=== PATIENT | female | born 1995 | race Hispanic/Latino ===

== ENCOUNTER 2020-05-29 11:07 | Inpatient (IN) | payer OTHER ==
[~2020-05-29] VITALS: Ht 152.4 cm; Wt 72.6 kg
--- NOTE | ~2020-05-29 | OR ---
[facility] [address] [place], [place] [address] Draft DATE OF OPERATION: 05/29/2020 SURGEON: Ascencion Cantrell DO PREOPERATIVE DIAGNOSES: 1. Term . 2. Breech presentation. 3. . 4. Type 2 diabetes, diet controlled. POSTOPERATIVE DIAGNOSES: 1. Term . 2. Breech presentation. 3. . 4. Type 2 diabetes, diet controlled. SPORTS ADMINISTRATOR: Zuly Lobato MD ANESTHESIA: Spinal. PROCEDURE PERFORMED: Primary low transverse delivery. ESTIMATED BLOOD LOSS: 500 mL. COMPLICATIONS: None. INDICATION: Ms. Deon Gonzales is a pleasant 25-year-old G1, P0 female, who presented to Labor and Delivery complaining of rupture of membranes. complicated by type 2 diabetes, well controlled with metformin and persistent breech presentation. The patient had failed external cephalic version with a previous . The patient denies contractions. She is also GBS positive. She was admitted to Labor and Delivery for primary low transverse delivery. Risks, benefits, and alternatives were discussed in detail with the patient. The patient understands and wished to proceed with the procedure. PATIENT NAME: NICOLLE TOMPKINS OPERATIVE REPORT DATE OF : [birth year] REPORT #: [id number] PHYSICIAN: ASCENCION CANTRELL DO PCP: ASCENCION CANTRELL DO REPORT IS CONFIDENTIAL AND NOT TO BE RELEASED WITHOUT AUTHORIZATION [facility] [address] [place], [place] [address] Draft TECHNIQUE: The patient was taken to the operating room where a time-out was performed to confirm correct patient and correct procedure. Spinal anesthesia was adequately established. The patient was prepped and draped in the supine position with a bump under the right hip. Ancef 2 g was given preoperatively per skip protocol and no heparin was indicated per previous score. A bump was placed on the right hip. ICPs were on and running. A Sams catheter was inserted. A Pfannenstiel skin incision was made after confirming spinal anesthetic was adequate. The incision was taken down through the fascia in midline and the fascia was nicked using the surgical scalpel. The fascial incision was extended bilaterally using curved Parker scissors. The fascia was grasped with Ady's, elevated, and the underlying rectus was divided with a blunt and sharp dissection. The rectus muscles were divided in the midline and peritoneum was grasped with hemostats elevated and entered sharply. Peritoneal incision was extended cephalad and caudad using blunt and sharp dissection. The lower uterine segment was identified and an Logan self retractor was placed. Hysterotomy was then performed using a surgical scalpel and clear fluids as noted. Hysterotomy was extended bilaterally using blunt dissection. buttocks were noted and elevated and abdomen by grasping the bilateral . That fetus was gently delivered with the assistance of fundal pressure up to the axilla. The anterior arm was swept medially and delivered. was rotated to 180 degrees and now the anterior arm was medially and easily delivered. The was then rotated to the occiput anterior position. The head was flexed by grasping the maxilla and delivered easily. The was vigorous and cried. No nuchal cord was identified. Thick meconium was noted. The cord was doubly clamped and cut and the handed to the awaiting pediatric team for further care. Cord blood was obtained for routine analysis. Placenta was then manually extracted intact with a centrally inserted 3-vessel cord. Bleeding was scant. Pitocin was given per protocol. The uterus was evaluated and lap sponge was used to remove any remaining products of conception and clot. Hysterotomy was then repaired using 0 Vicryl in a running locked manner. A second imbricating suture of 0 Vicryl was applied in a vertical manner with excellent imbrication. Small amount of oozing was noted just left of the midline and this was made hemostatic with a [id number]-of-daalt suture. The pelvis was irrigated and found to be hemostatic. Bilateral tubes and ovaries were identified and . The Logan self retractor was induced and the pelvic hemostatic. The peritoneum was then reapproximated using 2-0 Vicryl after ACell sheet was . The rectus was evaluated and small amount of oozing was noted just left of the midline. This was made homeostatic with multiple figure of eight sutures of 0 Chromic. After ensuring the rectus was hemostatic, ACell powder was applied and the rectus was ligated in the middle three times using interrupted 0 Vicryl stitch. Fascia was then reapproximated using 0 Vicryl in a running nonlocked manner. was reapproximated using 2-0 Vicryl in a running nonlocked manner. Skin was reapproximated using surgical wilder. Good hemostasis was appreciated. and the patient PATIENT NAME: NICOLLE TOMPKINS OPERATIVE REPORT DATE OF : [birth year] REPORT #: [id number] PHYSICIAN: ASCENCION CANTRELL DO PCP: ASCENCION CANTRELL DO REPORT IS CONFIDENTIAL AND NOT TO BE RELEASED WITHOUT AUTHORIZATION [facility] [address] [place] [address] Draft was taken to PACU in good and stable condition. Sponge, needle, instrument count were correct x2 at the end of the procedure. was present and participated in all portions of the procedure. Ascencion Cantrell DO JHECTOR/AMALIAL /[id number] Copies: ~ PATIENT NAME: NICOLLE TOMPKINS OPERATIVE REPORT DATE OF : [birth year] REPORT #: [id number] PHYSICIAN: ASCENCION CANTRELL DO PCP: ASCENCION CANTRELL DO REPORT IS CONFIDENTIAL AND NOT TO BE RELEASED WITHOUT AUTHORIZATION
[~2020-05-29 11:07] MED LIST: DOXYCYCLINE HY100 MG PO; NAPROXEN375 MG PO
[2020-05-29] MEDS ORDERED: PRENATAL VITAM1 EAC5 PO (13:54)
[2020-05-29] MEDS ORDERED: METFORMIN HCL500 MG PO (13:55)
--- NOTE | 2020-05-29 13:55 | NUR ---
05/29/20 1355 Tiff Marshall 4944- PT ARRIVES TO [facility] ROOM #103. PT REPORTS NO PAIN OR NAUSEA. RESP EVEN AND UNLABORED. OXYGEN SAT HIGH 90'S TO 100% ON RA. PT'S IV SITE INFUSING LR WITH 20 UNITS OF PITOCIN WELL. PT'S MOTHER AND BABY AT THE BEDSIDE.
--- NOTE | 2020-05-30 08:14 | PR ---
[facility] [address] [place], [place] [address] Signed PP Progress Notes Datetime Report Generated by AMADOR: 05/30/2020 08:14 SUBJECTIVE: [id number] Pain: Within Normal Limits Nausea/Vomiting: Denies Flatus: Yes Vital Signs: [id number] Vital Signs: Reviewed; Within Normal Limits Cardiovascular: Normal Respiratory: Normal Abdomen/Uterus: Abnormal Lochia: Normal Vulva/Perineum: Not Done Breasts: Not Done CVA Tenderness: Not Done Extremities: Normal Incision: Normal Progress: Normal Exam Comments: Abdomen with active BS. Fundus firm, NT @ U-1. H/H 10.1/29.6, WBC 6, plat 114k IMPRESSION/PLAN/PROCEDURES: [id number] Impression: Normal Progression Other Plans: Ambulate, shower Procedures: None Progress Notes: Doing well. Will increase ambulation. Sugars doing well thus far off medication. Signing Physician: Zuly Lobato MD Copies: ~ *Electronically Signed* 05/30/20813 ZULY LOBATO MD PATIENT NAME: NICOLLE TOMPKINS PROGRESS NOTE DATE OF : [birth year] PHYSICIAN: ZULY LOBATO MD RPT #: [id number] REPORT IS CONFIDENTIAL AND NOT TO BE RELEASED WITHOUT AUTHORIZATION
--- NOTE | 2020-05-31 09:32 | PR ---
[facility] [address] [place], [place] [address] Signed PP Progress Notes Datetime Report Generated by CPDelano: 05/31/2020 09:32 SUBJECTIVE: [id number] Pain: Within Normal Limits Pain Comments: Giving quite a few bottles Nausea/Vomiting: Denies Flatus: Yes Vital Signs: [id number] Vital Signs: Reviewed; Within Normal Limits Cardiovascular: Normal Respiratory: Not Done Abdomen/Uterus: Abnormal Lochia: Normal Vulva/Perineum: Not Done Breasts: Not Done CVA Tenderness: Not Done Extremities: Normal Incision: Normal Progress: Abnormal Exam Comments: Abdomen with active BS. Fundus firm, NT @ U-1. IMPRESSION/PLAN/PROCEDURES: [id number] Impression: Normal Progression Plan: Remove [place]; Discharge Other Plans: Ambulate, shower Procedures: None Progress Notes: Doing well though not breast feeding much. She is ready for D/C. Signing Physician: Zuly Lobato MD Copies: ~ *Electronically Signed* 05/31/20 0932 ZULY LOBATO MD PATIENT NAME: NICOLLE TOMPKINS PROGRESS NOTE DATE OF : [birth year] PHYSICIAN: ZULY LOBATO MD RPT #: [id number] REPORT IS CONFIDENTIAL AND NOT TO BE RELEASED WITHOUT AUTHORIZATION
== END 2020-05-31 13:25 | disposition home or self-care (01) | DRG 786 ==
LOC: FBC 11:07
PROVIDERS: ADMIT Obstetrics & Gynecology; ATTEND Obstetrics & Gynecology
PROC: 10D00Z1 Extraction of Products of Conception, Low, Open Approach (ICD-10-PCS; principal; 2020-05-29 12:00)
DX: O32.1XX0 Maternal care for breech presentation, not applicable or unspecified (principal); O24.12 Pre-existing type 2 diabetes mellitus, in childbirth; O41.03X0 Oligohydramnios, third trimester, not applicable or unspecified; Z3A.38 38 weeks gestation of pregnancy; Z37.0 Single live birth; O42.92 Full-term premature rupture of membranes, unspecified as to length of time between rupture and onset of labor; E11.9 Type 2 diabetes mellitus without complications; O99.824 Streptococcus B carrier state complicating childbirth; O99.214 Obesity complicating childbirth; E66.9 Obesity, unspecified; O77.0 Labor and delivery complicated by meconium in amniotic fluid; Z79.84 Long term (current) use of oral hypoglycemic drugs
CPT/HCPCS: 36415; 85027; A9270; J0690; J1885; J2001; J2274; J2405; J2590; J3010